=== PATIENT | male | born 1960 | race Hispanic/Latino ===

== ENCOUNTER → 2017-04-19 | Day surgery (SDC) | payer OTHER ==
[2017-04-14 17:10] LABS: ANION GAP 14.5 mmol/L (8-16); BLOOD UREA NITROGEN 15 mg/dL (7-26); BUN/CREATININE RATIO 14 (6-25); CALCIUM 9.6 mg/dL (8.4-10.2); CARBON DIOXIDE 26 mmol/L (22-29); CHLORIDE 99 mmol/L (98-107); CREATININE, SERUM 1.09 mg/dL (0.72-1.25); EST GLOMERULAR FILTRATION RATE > 60 ML/MIN (60-); GLUCOSE 240 mg/dL (74-118); POTASSIUM 3.5 mmol/L (3.5-5.1); SODIUM 136 mmol/L (136-145)
[~2017-04-19] MED LIST: AMARYL4 MG; BACITRACIN ZINC 15 GM OINT ONE; BIOTIN; BUPIVACAINE HCL 0.5% INJ 30 ML VIAL INJ ONE; CEFAZOLIN SOD 1 GM/NS 50ML 50 ML IV ONE; CINNAMON500 MG; DEXAMETHASONE SOD PHOS INJ 4 MG/ML VIAL ONE; FENOFIBRATE145 MG; FENTANYL CITRATE/PF 100MCG/2 ML INJ ONE; FISH OIL 1,2001 EAC1; GABAPENTIN300 MG PO; GARLIC200 MG PO; KETOROLAC TROMETHAMINE 30 MG/ML VIAL ONE; LIDOCAINE HCL 2% LOCAL INJ 5 ML SDV VIAL INJ ONE; MIDAZOLAM HCL 2 MG/2 ML VIAL ONE; MULTIVITAMINS1 EAC7; ONDANSETRON HCL INJ 2 MG/ML VIAL ONE; PROPOFOL IV EMULSION 10 MG/ML 20 ML VIAL ONE; SEVOFLURANE INHAL SOLN 250 ML PEN BTL ONE; TYLENOL WITH C1 EACH PO
--- NOTE | 2017-04-19 15:42 | Operative Report ---
DATE OF PROCEDURE: April 19, 2017 PREOPERATIVE DIAGNOSIS: Left ankle fracture. POSTOPERATIVE DIAGNOSIS: Left ankle fracture. PROCEDURE: Open reduction and internal fixation, left ankle (lateral only). TRIM LINE WORKER: Nick Bee PA-C The patient was brought to the operating room for induction of anesthesia. Throughout this case, my PA's assistance was necessary for retraction of soft tissue and positioning of the extremity. This allows for efficient and technically successful execution of the operation and is considered medically necessary. INDICATIONS: The patient is a 56-year-old gentleman who has an acute left ankle fracture. He has displacement of the distal fibula with widening of the medial clear space. The findings and options have been discussed. We recommend open reduction with internal fixation. The risks and benefits have been explained. He states he understands and wishes to proceed. DESCRIPTION OF PROCEDURE: The patient was brought to the operating room and placed under general anesthetic. His left lower extremity was prepped and draped in a sterile manner. He received prophylactic antibiotics in the holding area. A preoperative time-out was performed. The extremity was exsanguinated and a proximal tourniquet was briefly inflated to 300 mmHg. An incision was made over the distal fibula. The fracture site was carefully exposed and debrided of fracture hematoma. Minimal periosteal stripping was performed. A lobster claw reduction clamp was used to perform an anatomic reduction. A lag screw was placed from anterior to posterior. Nice compression and anatomic position of the fracture site was accomplished. An 8-hole one-third semi-tubular plate was then fixed over the distal fibula. A combination of cortical and cancellous screws were used. Nice bone quality was encountered. Intraoperative x-rays confirmed good position of the hardware and anatomic reduction. The medial clear space was reduced anatomically and did not stress open under C-arm image intensifier. The wound was then irrigated with sterile saline and 10 mL of 0.5% Marcaine without epinephrine was used to infiltrate the tierra-incisional tissue. The skin was closed with subcuticular Vicryl and harvey. A sterile bandage and a well-padded splint were applied. Estimated blood loss was about 10 mL. All needle and sponge counts were correct. Job#: [id number] SAK
== END | disposition home or self-care (01) ==
LOC: OR 05:46
PROVIDERS: ATTEND Specialist
DX: S82.62XA Displaced fracture of lateral malleolus of left fibula, initial encounter for closed fracture (principal); E11.9 Type 2 diabetes mellitus without complications; E78.5 Hyperlipidemia, unspecified; W18.49XA Other slipping, tripping and stumbling without falling, initial encounter; Z01.810 Encounter for preprocedural cardiovascular examination; Z01.812 Encounter for preprocedural laboratory examination; Z68.31 Body mass index [BMI] 31.0-31.9, adult; Z87.442 Personal history of urinary calculi
CPT/HCPCS: 27792; 36415 ×2; 76000; 80048; 82948; 93005; J1100; J1885; J2001; J2250; J2405

== ENCOUNTER → 2021-07-18 | Day surgery (SDC) | payer OTHER ==
[2021-07-16 08:52] LABS: ANION GAP 14.7 mmol/L (8-16); CALCIUM 10.6 mg/dL (8.4-10.2); CREATININE, SERUM 0.95 mg/dL (0.72-1.25); POTASSIUM 4.7 mmol/L (3.5-5.1)
[~2021-07-18] MED LIST changes: -BACITRACIN ZINC 15 GM OINT ONE; +BUPIVACAINE HCL 0.25% 10ML MPF VIAL INJ ONE; -BUPIVACAINE HCL 0.5% INJ 30 ML VIAL INJ ONE; -CEFAZOLIN SOD 1 GM/NS 50ML 50 ML IV ONE; +CENTRUM ADULTS1 EACH PO; +CINNAMON; +CO Q-10 100 MG1 EACH; +DEXAMETHASONE SOD PHOS INJ 4 MG/ML SDV ONE; -DEXAMETHASONE SOD PHOS INJ 4 MG/ML VIAL ONE; -FENTANYL CITRATE/PF 100MCG/2 ML INJ ONE; +FENTANYL1 EAC1 TOP; +LIDOCAINE 1% W/EPINEPHRINE 20 ML VIAL ONE; +METFORMIN HCL500 MG PO; -MIDAZOLAM HCL 2 MG/2 ML VIAL ONE; -ONDANSETRON HCL INJ 2 MG/ML VIAL ONE; +ONDANSETRON HCL INJ 2MG/ML 2ML 2 MG/ML VIAL ONE; +POVIDONE IODINE 0.05% 0.05 % ML PO ONE; +SODIUM CHLORIDE 0.9% 50ML 100 ML ONE
[2021-07-18 09:35] VITALS: BP 145/84
== END | disposition home or self-care (01) ==
LOC: OR 05:33
PROVIDERS: ATTEND Orthopaedic Surgery
DX: S83.232A Complex tear of medial meniscus, current injury, left knee, initial encounter (principal); S83.282A Other tear of lateral meniscus, current injury, left knee, initial encounter; D75.89 Other specified diseases of blood and blood-forming organs; M22.42 Chondromalacia patellae, left knee; M67.52 Plica syndrome, left knee; E11.9 Type 2 diabetes mellitus without complications; K21.9 Gastro-esophageal reflux disease without esophagitis; X58.XXXA Exposure to other specified factors, initial encounter; Z88.8 Allergy status to other drugs, medicaments and biological substances; Z01.810 Encounter for preprocedural cardiovascular examination; Z01.812 Encounter for preprocedural laboratory examination; Z20.822 Contact with and (suspected) exposure to COVID-19; Z79.84 Long term (current) use of oral hypoglycemic drugs; Z79.899 Other long term (current) drug therapy
CPT/HCPCS: 27599; 29880; 36415 ×2; 76000; 80048; 82948; 93005; C1713; J0690; J1100; J1885; J2001; J2405; J2704; U0002

== ENCOUNTER 2021-08-08 09:00 | Outpatient (RCR) | payer OTHER ==
[~2021-08-08 09:00] MED LIST changes: -BUPIVACAINE HCL 0.25% 10ML MPF VIAL INJ ONE; -DEXAMETHASONE SOD PHOS INJ 4 MG/ML SDV ONE; -KETOROLAC TROMETHAMINE 30 MG/ML VIAL ONE; -LIDOCAINE 1% W/EPINEPHRINE 20 ML VIAL ONE; -LIDOCAINE HCL 2% LOCAL INJ 5 ML SDV VIAL INJ ONE; -ONDANSETRON HCL INJ 2MG/ML 2ML 2 MG/ML VIAL ONE; -POVIDONE IODINE 0.05% 0.05 % ML PO ONE; -PROPOFOL IV EMULSION 10 MG/ML 20 ML VIAL ONE; -SEVOFLURANE INHAL SOLN 250 ML PEN BTL ONE; -SODIUM CHLORIDE 0.9% 50ML 100 ML ONE
== END 2021-08-09 ==
LOC: PT 09:00
PROVIDERS: ATTEND Orthopaedic Surgery
DX: S83.232D Complex tear of medial meniscus, current injury, left knee, subsequent encounter (principal)
CPT/HCPCS: 97110 ×7; 97112; 97161; G0283 ×2

== ENCOUNTER 2021-08-18 07:59 | Outpatient (RCR) | payer OTHER | END 2021-09-09 | LOC: PT 07:59 | PROVIDERS: ATTEND Orthopaedic Surgery | DX: S83.232D Complex tear of medial meniscus, current injury, left knee, subsequent encounter (principal) | CPT/HCPCS: 97110 ×3; 97139; G0283 ==

== ENCOUNTER 2024-01-09 00:01 | Emergency (ER) | payer OTHER ==
[~2024-01-09 00:01] MED LIST changes: +DICYCLOMINE HCL10 MG PO; +ONDANSETRON ODT4 MG PO
[2024-01-09] MEDS ORDERED: ONDANSETRON HCL INJ 2MG/ML 2ML 2 MG/ML VIAL IV STA (00:33)
[2024-01-09] MEDS ORDERED: SODIUM CHLORIDE 0.9% 1000ML 1,000 ML IV STA (00:33)
[2024-01-09 01:22] VITALS: TEMP 98.8
[2024-01-09] MEDS ORDERED: FAMOTIDINE 20 MG/2 ML VIAL IV ONE (01:28)
[2024-01-09 01:44] LABS: BASOPHILS % 0.2 % (0.0-1.0); EOSINOPHILS % 0.4 % (0.0-6.0); HEMOGLOBIN 13.9 g/dL (14.0-18.0); LYMPHOCYTES # (AUTO) 1.3 (1.0-3.2); LYMPHOCYTES % 11.9 % (18.0-39.1); MEAN CORPUSCULAR HEMOGLOBIN 32.9 pg (28-32); MEAN CORPUSCULAR HGB CONC 33.9 g/dL (31-35); MEAN CORPUSCULAR VOLUME 97.2 fL (81-99); MONOCYTES # (AUTO) 0.6 (0.2-0.8); MONOCYTES % 5.7 % (4.4-11.3); NEUTROPHILS # (AUTO) 8.9 (2.1-6.9); NEUTROPHILS % 81.2 % (38.7-80.0); PLATELET COUNT 310 x10e3/uL (140-360); RED BLOOD COUNT 4.22 x10e6/uL (4.3-5.7); RED CELL DISTRIBUTION WIDTH 11.7 % (11.7-14.4); WHITE BLOOD COUNT 10.99 x10e3/uL (4.8-10.8)
[2024-01-09] MEDS: Morphine 4mg INJECTION 4 MG/ML INJ IV STA (01:44)
[2024-01-09] MEDS: FAMOTIDINE 20 MG/2 ML VIAL IV STA (01:44)
[2024-01-09] MEDS: ONDANSETRON HCL INJ 2MG/ML 2ML 2 MG/ML VIAL IV STA (01:45)
[2024-01-09] MEDS: SODIUM CHLORIDE 0.9% 1000ML 1,000 ML IV STA (01:45)
[2024-01-09 01:52] LABS: CLARITY,URINE SL CLOUDY (CLEAR); COLOR,URINE YELLOW (YELLOW)
[2024-01-09 01:53] LABS: BILIRUBIN,URINE NEGATIVE (NEGATIVE); GLUCOSE, URINE NEGATIVE (NEGATIVE); KETONES,URINE TRACE (NEGATIVE); LEUKOCYTE ESTERASE ,URINE NEGATIVE (NEGATIVE); NITRITE,URINE NEGATIVE (NEGATIVE); PH,URINE 6.5 (5 - 7); PROTEIN,URINE DIPSTICK NEGATIVE (NEGATIVE); URINE UROBILINOGEN 0.2 mg/dL (0.2 - 1)
[2024-01-09 01:59] LABS: BACTERIA,URINE MODERATE /HPF; EPITHELIAL CELLS,URINE FEW /LPF
[2024-01-09 02:00] LABS: HYALINE CASTS 0-1 (0-1); MUCUS,URINE MANY (RARE)
[2024-01-09 02:02] LABS: CYSTINE CRYSTALS,URINE FEW
[2024-01-09 02:03] LABS: ALBUMIN 4.3 g/dL (3.5-5.0); ALKALINE PHOSPHATASE 65 IU/L (40-150); ANION GAP 16.7 mmol/L (8-16); BILIRUBIN,TOTAL 0.5 mg/dL (0.2-1.2); BLOOD UREA NITROGEN 13 mg/dL (7-26); BUN/CREATININE RATIO 14 (6-25); CALCIUM 9.7 mg/dL (8.4-10.2); CARBON DIOXIDE 24 mmol/L (22-29); CHLORIDE 100 mmol/L (98-107); CREATININE, SERUM 0.95 mg/dL (0.72-1.25); EST GLOMERULAR FILTRATION RATE 89 ML/MIN (>=60); GLUCOSE 234 mg/dL (74-118); LIPASE 17 U/L (8-78); POTASSIUM 3.7 mmol/L (3.5-5.1); SODIUM 137 mmol/L (136-145)
[2024-01-09] MEDS ORDERED: IOPAMIDOL 370 MG/ML 100 ML INFUS..BTL INJ ONE (02:21)
[2024-01-09 02:24] LABS: ALANINE AMINOTRANSFERASE 25 IU/L (0-55); ALBUMIN/GLOBULIN RATIO 1.6 (0.8-2.0); CREATINE KINASE 88 IU/L (30-200); TOTAL PROTEIN 7.2 g/dL (6.5-8.1)
[2024-01-09 02:37] LABS: TROPONIN I < 0.001 ng/mL (0-0.300)
[2024-01-09] MEDS: DONNATAL/LIDOCAINE/MAALOX 30 ML SUSP PO STA (03:05)
[2024-01-09] MEDS ORDERED: BELLADONNA ALK/PHENOBARBITAL 5 ML UDC ONE (03:07)
[2024-01-09] MEDS ORDERED: MAGNESIUM/ALUMINUM/SIMETHICONE 30 ML UDC ONE (03:07)
[2024-01-09] MEDS ORDERED: LIDOCAINE VISC 2% SOLN 15 ML UDC ONE (03:07)
[2024-01-09] MEDS ORDERED: PANTOPRAZOLE SO40 MG PO (03:18)
[2024-01-09 03:34] VITALS: PULSE 81; RESP 14; O2SAT 97
== END 2024-01-09 03:40 | disposition home or self-care (01) ==
LOC: ER 00:15
DX: R10.13 Epigastric pain (principal); E11.65 Type 2 diabetes mellitus with hyperglycemia; E78.00 Pure hypercholesterolemia, unspecified; K76.0 Fatty (change of) liver, not elsewhere classified; M87.852 Other osteonecrosis, left femur; M87.851 Other osteonecrosis, right femur; R94.31 Abnormal electrocardiogram [ECG] [EKG]; Z87.442 Personal history of urinary calculi
CPT/HCPCS: 36415; 74177; 80053; 81001; 82550; 83690; 84484; 85025; 93005; 99284; J2270; J2405; J7030; Q9967